=== PATIENT | female | born 1970 | race Caucasian/White ===

== ENCOUNTER 2022-05-10 18:14 | Observation (INO) ==
[2022-05-10 18:56] LABS: Basophils % 0.2 % (0.0-0.8); Eosinophils # 0.3 10*3/uL (0.0-0.87); Eosinophils % 4.1 % (0.00-10.9); Hematocrit 38.8 VOL% (35.7-47.0); Hemoglobin 12.4 GM/DL (12.0-16.0); Immature Granulocytes % 0.4 %; Immature Granulocytes Absolute 0.03 #; Lymphocytes # 2.6 10*3/uL (1.4-4.0); Lymphocytes % 31.9 % (21.3-54.2); Mean Platelet Volume 10.1 FL (9.6-12.0); Monocytes # 0.6 10*3/uL (0.11-0.8); Monocytes % 7.4 % (1.7-12.7); Platelet Count 331 T/CUMM (130-400); Red Blood Count 4.31 MC/CUMM (3.8-5.5); Red Cell Distribution Width 14.8 % (9.3-17.3); White Blood Count 8.1 T/CUMM (4-12)
[2022-05-10] MEDS ORDERED: hydrALAZINE 20 MG/1 ML VIAL IV STA (19:03)
[2022-05-10] MEDS ORDERED: ONDANSETRON 4 MG/2 ML VIAL ONE (19:09)
[2022-05-10 19:16] LABS: Alanine Aminotransferase 20 U/L (13-56); Albumin 4.2 G/DL (3.4-5.0); Alkaline Phosphatase 157 U/L (45-117); Aspartate Amino Transferase 36 U/L (0-37); Bilirubin,Total < 0.39 MG/DL (0.20-1.00); Blood Urea Nitrogen 13 MG/DL (7-18); Calcium 9.4 MG/DL (8.5-10.1); Carbon Dioxide 29 MMOL/L (21-32); Chloride 104 MMOL/L (98-107); Glucose 82 MG/DL (74-106); Osmolality,Calculated 271.8 MOS/KG (273-304); Potassium 4.8 MMOL/L (3.5-5.1); Sodium 137 MMOL/L (136-145); Total Protein 8.4 G/DL (6.4-8.2)
[2022-05-10] MEDS ORDERED: MORPHINE 2 MG/1 ML SYRINGE IV STA (20:08)
[2022-05-10] MEDS ORDERED: MORPHINE 2 MG/1 ML SYRINGE ONE (20:09)
[2022-05-10] MEDS: ONDANSETRON 4 MG/2 ML VIAL IV PRN (20:10)
[2022-05-10] MEDS ORDERED: PIPERACILLIN/TAZOBACTAM 3,375 MG in SODIUM CHLORIDE 0.9% 100 ML IV STA (20:44)
[2022-05-10] MEDS ORDERED: VANCOMYCIN INJ 1,000 MG in SODIUM CHLORIDE 0.9% 250 ML IV STA (20:44)
[2022-05-10] MEDS ORDERED: MORPHINE 2 MG/1 ML SYRINGE IV PRN (21:07)
[2022-05-10] MEDS ORDERED: hydrALAZINE 20 MG/1 ML VIAL IV PRN (21:07)
[2022-05-10] MEDS ORDERED: ALBUTEROL/IPRATROPIUM 3 ML NEB RESP TX PRN (21:07)
[2022-05-10] MEDS ORDERED: ASPIRIN 325 MG TABLET PO STA (21:41)
[2022-05-10] MEDS ORDERED: cloNIDine 0.1 MG TABLET PO PRN (21:41)
[2022-05-10] MEDS ORDERED: BACLOFEN 10 MG TABLET PO PRN (23:03)
[2022-05-11 01:14] LABS: Basophils % 0.3 % (0.0-0.8); Eosinophils # 0.4 10*3/uL (0.0-0.87); Eosinophils % 5.2 % (0.00-10.9); Hematocrit 34.6 VOL% (35.7-47.0); Hemoglobin 11.2 GM/DL (12.0-16.0); Immature Granulocytes % 0.3 %; Immature Granulocytes Absolute 0.02 #; Lymphocytes # 2.6 10*3/uL (1.4-4.0); Lymphocytes % 37.2 % (21.3-54.2); Mean Corpuscular HGB Conc 32.4 GM/DL (32-36); Mean Corpuscular Volume 89.9 FL (87-102); Mean Platelet Volume 9.8 FL (9.6-12.0); Monocytes # 0.5 10*3/uL (0.11-0.8); Monocytes % 7.1 % (1.7-12.7); Neutrophils % 49.9 % (38.7-73.9); Platelet Count 303 T/CUMM (130-400); Red Blood Count 3.85 MC/CUMM (3.8-5.5); Red Cell Distribution Width 14.9 % (9.3-17.3); White Blood Count 7.1 T/CUMM (4-12)
[2022-05-11] MEDS: lisinopriL 20 MG TABLET PO SCH ×2 (01:47→22:05)
[2022-05-11] MEDS: carvediloL 12.5 MG TABLET PO SCH ×3 (01:47→22:05)
[2022-05-11] MEDS: ONDANSETRON 4 MG/2 ML VIAL IV PRN ×2 (01:48→22:18)
[2022-05-11 01:54] LABS: Calcium 8.9 MG/DL (8.5-10.1); Osmolality,Calculated 273.7 MOS/KG (273-304); Potassium 3.9 MMOL/L (3.5-5.1)
[2022-05-11] MEDS: LEVOTHYROXINE 100 MCG TABLET PO SCH (05:39)
[2022-05-11] MEDS ORDERED: buPROPion XL 150 MG TABLET PO SCH (09:00)
[2022-05-11] MEDS ORDERED: DULoxetine 30 MG CAPSULE PO SCH (09:00)
[2022-05-11] MEDS: PANTOPRAZOLE 40 MG TABLET PO SCH (09:14)
[2022-05-11] MEDS: ENOXAPARIN 40 MG/0.4 ML SYRINGE SUBCUT SCH (09:18)
[2022-05-11] MEDS: GABAPENTIN 600 MG TABLET PO SCH ×2 (09:18→15:25)
[2022-05-11] MEDS: VANCOMYCIN INJ 1,250 MG in SODIUM CHLORIDE 0.9% 250 ML IV SCH ×2 (09:25→22:06)
[2022-05-11] MEDS ORDERED: NALOXONE 0.4 MG/ML VIAL IV ONE ×2 (10:19→12:08)
[2022-05-11] MEDS: ASPIRIN EC 81 MG TABLET PO SCH (11:22)
[2022-05-11] MEDS ORDERED: SODIUM CHLORIDE 0.9% 500 ML IV ONE (12:08)
[2022-05-11] MEDS: ACETAMINOPHEN 325 MG TABLET PO PRN (22:05)
[2022-05-11] MEDS: traMADol 50 MG TABLET PO PRN (23:26)
[2022-05-12 05:07] LABS: Basophils % 0.1 % (0.0-0.8); Eosinophils # 0.2 10*3/uL (0.0-0.87); Eosinophils % 1.9 % (0.00-10.9); Hematocrit 32.5 VOL% (35.7-47.0); Hemoglobin 10.4 GM/DL (12.0-16.0); Immature Granulocytes % 0.3 %; Immature Granulocytes Absolute 0.04 #; Lymphocytes # 1.6 10*3/uL (1.4-4.0); Lymphocytes % 13.2 % (21.3-54.2); Mean Corpuscular Volume 91.3 FL (87-102); Mean Platelet Volume 10.7 FL (9.6-12.0); Monocytes # 0.6 10*3/uL (0.11-0.8); Monocytes % 4.6 % (1.7-12.7); Neutrophils % 79.9 % (38.7-73.9); Platelet Count 254 T/CUMM (130-400); Red Blood Count 3.56 MC/CUMM (3.8-5.5); Red Cell Distribution Width 14.9 % (9.3-17.3); White Blood Count 12.2 T/CUMM (4-12)
[2022-05-12] MEDS: ACETAMINOPHEN 325 MG TABLET PO PRN (05:13)
[2022-05-12 05:30] LABS: Calcium 7.9 MG/DL (8.5-10.1); Osmolality,Calculated 279.4 MOS/KG (273-304); Potassium 4.6 MMOL/L (3.5-5.1)
[2022-05-12] MEDS: LEVOTHYROXINE 100 MCG TABLET PO SCH (05:43)
[2022-05-12] MEDS: ENOXAPARIN 40 MG/0.4 ML SYRINGE SUBCUT SCH (08:07)
[2022-05-12] MEDS: carvediloL 12.5 MG TABLET PO SCH (08:08)
[2022-05-12] MEDS: PANTOPRAZOLE 40 MG TABLET PO SCH (08:08)
[2022-05-12] MEDS: ASPIRIN EC 81 MG TABLET PO SCH (08:08)
[2022-05-12] MEDS: traMADol 50 MG TABLET PO PRN (08:08)
[2022-05-12 12:04] VITALS: BP 124/86
== END 2022-05-12 14:32 | disposition home health service (06) ==
LOC: N.ED 18:14 → N.EDINP 18:14 → N.TELES 23:01
PROVIDERS: ADMIT Family Medicine; ATTEND Family Medicine